=== PATIENT | female | born 1995 | race Two or more races ===

== ENCOUNTER 2017-05-22 00:15 | Emergency (ER) | payer SELFPAY | END 2017-05-22 02:56 | disposition home or self-care (01) | LOC: ER 00:15 | DX: O26.891 Other specified pregnancy related conditions, first trimester (principal); R10.30 Lower abdominal pain, unspecified; Z3A.01 Less than 8 weeks gestation of pregnancy | CPT/HCPCS: 36415; 76801; 76817; 84702; 99285-25 ==